=== PATIENT | male | born 1980 | race Caucasian/White ===

== ENCOUNTER 2018-04-22 15:53 | Emergency (ER) | payer OTHER ==
[~2018-04-22] VITALS: Ht 193 cm; Wt 97.7 kg
[2018-04-22 16:00] VITALS: Ht 193 cm; Wt 97.7 kg
[2018-04-22] MEDS ORDERED: LEVETIRACETAM 1000 MG (PMX) 100 ML IVPB STA (16:15)
[2018-04-22] MEDS ORDERED: SOD CHLORIDE 0.9% 1,000 ML IV STA (16:15)
[2018-04-22] MEDS ORDERED: ACETAMINOPHEN 325 MG TAB PO ONE (16:30)
[2018-04-22] MEDS ORDERED: LEVE-5 PO ×2 (16:49→17:23)
[2018-04-22] MEDS ORDERED: RANI150T35 PO (16:50)
--- NOTE | 2018-04-22 17:11 | ERD ---
ER Documentation Chief Complaint Chief Complaint ETOH AND SUBJECTIVE SEIZURE PRIOR TO ARRIVAL; LAST DRINK XFEW HOURS AGO HPI 37-year-old male history of alcohol abuse, seizure disorder on Keppra not taking Keppra for at least 2 days who presents to the emergency room with a possible seizure. He states that he was at the local clinic and felt like he was going to have a seizure or had a seizure. EMS reported that the patient was talking during his reported seizure. The patient denies any falls or head injury. He states that he was drinking today. No hematemesis or melena. No other complaints. He does have a mild headache but has a history of chronic migraine headaches and this is consistent with baseline. Headache is only 1 of the 10 currently. ROS All systems reviewed and are negative except as per history of present illness. Medications Home Meds Active Scripts Naloxone HCl (Narcan) 4 Mg Roper, 4 MG NS ONCE PRN for overdose, #2 SPRAY Prov:RAFAELA PÉREZ MD 04/22/18 Levetiracetam* (Keppra*) 500 Mg Tablet, 500 MG PO BID for 30 Days, TAB Prov:RAFAELA PÉREZ MD 04/22/18 Reported Medications Ranitidine Hcl* (Zantac*) Unknown Strength Tablet, 1 TAB PO HS, #30 TAB 04/22/18 Levetiracetam* (Keppra*) Unknown Strength Tablet, 1 TAB PO BID, TAB 04/22/18 Allergies Allergies: Coded Allergies: No Known Allergy (Unverified , 04/22/18) PMhx/Soc seizure FmHx Family History: No diabetes Physical Exam Vitals Vital Signs Date Temp Pulse Resp B/P (MAP) Pulse Ox O2 O2 Flow FiO2 Time Delivery Rate 04/22/18 97.5 93 24 109/77 96 16:00 (88) Physical Exam General: Disheveled, smells of alcohol, conversive Head: Normocephalic, atraumatic. Eyes: Pupils equally reactive, EOM intact ENT: Moist mucous membranes Neck: Supple, no lymphadenopathy Respiratory: Lungs clear bilaterally, no distress Cardiovascular: RRR, no murmurs, rubs, or gallops Abdominal: Soft, non-tender, non-distended, no peritoneal signs : Deferred MSK: No edema, no unilateral swelling, 5/5 strength Neurologic: Alert and oriented, moving all extremities, normal speech, no focal weakness, no cerebellar signs, no meningismus Skin: No rash, no evidence of head trauma Psych: Normal mood Result Diagram: 04/22/18 1630 04/22/18 1630 Results 24 hrs Laboratory Tests Test 04/22/18 16:30 White Blood Count 5.7 10^3/ul Red Blood Count 4.11 10^6/ul Hemoglobin 13.2 g/dl Hematocrit 39.1 % Mean Corpuscular Volume 95.1 fl Mean Corpuscular Hemoglobin 32.1 pg Mean Corpuscular Hemoglobin Concent 33.8 g/dl Red Cell Distribution Width 12.1 % Platelet Count 204 10^3/UL Mean Platelet Volume 10.5 fl Immature Granulocytes % 1.000 % Neutrophils % 36.9 % Lymphocytes % 49.7 % Monocytes % 10.5 % Eosinophils % 1.0 % Basophils % 0.9 % Nucleated Red Blood Cells % 0.0 /100WBC Immature Granulocytes # 0.060 10^3/ul Neutrophils # 2.1 10^3/ul Lymphocytes # 2.9 10^3/ul Monocytes # 0.6 10^3/ul Eosinophils # 0.1 10^3/ul Basophils # 0.1 10^3/ul Nucleated Red Blood Cells # 0.0 10^3/ul Sodium Level 137 mmol/L Potassium Level 4.4 mmol/L Chloride Level 99 mmol/L Carbon Dioxide Level 25 mmol/L Anion Gap 13 Blood Urea Nitrogen 8 mg/dl Creatinine 0.56 mg/dl Est Glomerular Filtrat Rate mL/min > 60 mL/min Glucose Level 92 mg/dl Calcium Level 8.4 mg/dl Current Medications Medications Dose Sig/Arian Start Time Status Last (Trade) Ordered Route PRN Stop Time Admin Dose Reason Admin Sodium 1,000 ml @ Q1H STAT 04/22/18 DC 04/22/18 Chloride 1,000 mls/hr IV 16:15 16:37 04/22/18 17:14 100 ml @ ONCE STAT 04/22/18 DC 04/22/18 Levetiracetam 400 mls/hr IVPB 16:15 16:29 04/22/18 16:30 650 mg ONCE ONCE 04/22/18 DC Acetaminophen PO 16:30 (Tylenol 04/22/18 16:31 Tab) Thiamine 100 mg ONCE ONCE 04/22/18 DC HCl PO 17:30 (Vitamin B1) 04/22/18 17:32 Folic Acid 1 mg ONCE ONCE 04/22/18 DC (Folic Acid) PO 17:30 04/22/18 17:32 Procedures/MDM LAB INTERPRETATION: * No evidence of infection or elect light disturbance MEDICAL DECISION MAKING: Patient's presentation is consistent with seizure versus pseudoseizure. The patient was apparently upset about waiting a long time at the clinic when he had this event. However, he has been noncompliant with his seizure medications for at least 2 days. Keppra loading would be appropriate. No signs or symptoms concerning for fall or head injury. The patient does drink alcohol and does have a mild headache but has a chronic headache and stated as such. I do not believe CT imaging of the brain is appropriate at this time. No evidence of withdrawal. ER COURSE: * Seizure precautions initiated * 1 g of Keppra given * Thiamine, folic acid and Tylenol provided * The patient continues to be well-appearing at this time I believe is safe for discharge. * He was advised to follow-up with his neurologist on an outpatient basis. * The patient's alcohol intoxication is mild he is steady on his feet, able to navigate the community. Safe for discharge. CONSULTATION: [None] DISPOSITION PLAN: The patient does not have an identifiable emergent medical condition that warrants inpatient hospitalization at this time. The patient is deemed safe for discharge with outpatient follow-up. We discussed follow up with the patient's primary care doctor within 24 to 48 hours as needed. We also discussed return to the emergency room for worsening symptoms or worsening condition. Outpatient referral: [None required] Discharge Medications: Keppra 500 twice daily, patient does not recall his dose Narcan given as patient with risk factors for substance abuse. Departure Diagnosis: Primary Impression: Alcohol abuse Additional Impressions: Non compliance w medication regimen Seizure disorder Condition: Stable RAFAELA PÉREZ MD Apr 22, 2018 17:11
[2018-04-22] MEDS ORDERED: THIAMINE 100 MG TAB PO ONE (17:30)
[2018-04-22] MEDS ORDERED: FOLIC ACID 1 MG TAB PO ONE (17:30)
[2018-04-22] MEDS ORDERED: NALO4SPR NS (17:36)
[2018-04-22 21:43] VITALS: BP 112/75; PULSE 90; RESP 20
== END 2018-04-22 21:43 | disposition home or self-care (01) ==
LOC: E/R 15:53
DX: F10.10 Alcohol abuse, uncomplicated (principal); G40.909 Epilepsy, unspecified, not intractable, without status epilepticus; Z91.14 Patient's other noncompliance with medication regimen
CPT/HCPCS: 36415; 80048; 85025; 96374; J1953; J7030; Z7502; Z7610